=== PATIENT | female | born 1970 | race Caucasian/White ===

== ENCOUNTER 2020-05-26 13:13 | Observation (INO) | payer OTHER ==
[2020-05-26] MEDS ORDERED: Ondansetron ODT 4 MG TAB ONE ×2 (13:56→14:00)
[2020-05-26] MEDS ORDERED: Ketorolac Tromethamine 30 MG/ML VIAL ONE (15:04)
[2020-05-26 15:31] LABS: ALT (SGPT) 82 U/L (8-55); AST (SGOT) 286 U/L (5-34); Alkaline Phosphatase 332 U/L (40-110); Anion Gap 32 mmol/L (10-20); BUN (Urea Nitrogen) 6 mg/dL (7.0-18.7); Bilirubin, Total 0.5 mg/dL (0.2-1.2); Calc. Creatinine Clearance 0 mL/min (70-130); Calcium 8.1 mg/dL (7.8-10.44); Carbon Dioxide 19 mmol/L (22-29); Chloride 87 mmol/L (98-107); Globulin 2.8 g/dL (2.4-3.5); Glucose 98 mg/dL (70-105); Lipase 65 U/L (8-78); Potassium 3.3 mmol/L (3.5-5.1); Protein, Total 5.8 g/dL (6.0-8.3); Sodium 135 mmol/L (136-145)
[2020-05-26 15:35] LABS: Hemoglobin 11.6 g/dL (12.0-16.0); Mean Corpuscular HGB CONC 34.6 g/dL (32.0-36.0); Platelet Count 275 thou/uL (130-400); RBC Distribution Width 17.8 % (11.5-14.5); Red Blood Cell (RBC) Count 3.13 mill/uL (4.20-5.40); White Blood Cell (WBC) Count 7.8 thou/uL (4.8-10.8)
[2020-05-26 15:38] LABS: #Basophils 0.1 thou/uL (0.0-0.2); #Lymphocytes 2.1 thou/uL (1.20-3.40); #Neutrophils 4.7 thou/uL (1.40-6.50); %Basophils 0.7 % (0.0-1.0); %Eosinophils 0.4 % (0.0-10.0); %Lymphocytes 26.8 % (21.0-51.0); %Monocytes 12.3 % (0.0-10.0); %Neutrophils 59.9 % (42.0-75.0)
[2020-05-26 15:39] LABS: Anisocytosis SLIGHT = 6-15 cells (100X) (0-5/hpf); MDiff Complete? YES; Macrocytosis SLIGHT = 6-15 cells (100X) (0-5/hpf); Platelet Morphology Comment Appears Adequate; Target Cells SLIGHT = 2-5 cells (100X) (0-1/hpf)
[2020-05-26 16:08] LABS: Acetaminophen Less than 6.0 mcg/mL (10.0-30.0); Alcohol 81 mg/dL (Less than 10); Salicylate Less than 8.0 mg/dL (15.0-30.0)
--- NOTE | 2020-05-26 16:58 | RAD ---
Exam: Chest one view HISTORY:Altered mental status. Vomiting and diarrhea Comparison: 01/16/2020 FINDINGS: Cardiac silhouette: Normal Aorta: Unremarkable Pulmonary vessels: Normal Costophrenic angles: Clear LUNGS: No masses or consolidation. Pneumothorax: None Osseous abnormalities: None IMPRESSION: No acute cardiopulmonary process.
[2020-05-26] MEDS ORDERED: Multivitamins, Adult 10 ML, Thiamine HCl 100 MG, Folic Acid 1 MG in Dextrose 5 %-0.45 %... IV ONE (17:00)
[2020-05-26 17:13] LABS: Bilirubin Negative (Negative); Blood, Urine Negative (Negative); Clarity Clear (Clear); Glucose, Urine (Dipstick) Normal (Negative); Ketone, Urine 40 mg/dL (Negative); Leukocyte Negative Leu/uL (Negative); Nitrite Negative (Negative); Protein, Urine (Dipstick) 10 mg/dL (Neg-Trace); Specific Gravity, Urine 1.019 (1.002-1.036); Urobilinogen Normal mg/dL (Less than 2)
[2020-05-26] MEDS ORDERED: Piperacillin/Tazobactam 3.375 GM VIAL ONE (17:16)
[2020-05-26 17:23] LABS: Amphetamine Not Detected (NotDetected); Barbiturates Screen Not Detected (NotDetected); Benzodiazepine Screen Not Detected (NotDetected); Cocaine Metabolite Screen Not Detected (NotDetected); Medtox Control Line Valid? VALID (VALID); Medtox Reader # READER 4; Methadone Not Detected (NotDetected); Methamphetamine Not Detected (NotDetected); Opiate Screen Not Detected (NotDetected); Oxycodone Screen Not Detected (NotDetected); Phencyclidine (PCP) Not Detected (NotDetected); THC/Cannabinoid Screen Not Detected (NotDetected); Tricyclic Screen Not Detected (NotDetected)
[2020-05-26] MEDS ORDERED: Potassium Chloride 20 MEQ TAB ONE (17:34)
[2020-05-26 18:16] LABS: Base Excess-Venous 1.5 mmol/L (-2.0 to 3.0); Bicarbonate (HCO3v) 25.2 mmol/L (22.0-28.0); CO2 Tension (PvCO2) 35.8 mmHg (40.0-50.0); Chloride 91 mmol/L (98-107); Hemoglobin - Calc 12.5 g/dL (12.0-16.0); Potassium 3.2 mmol/L (3.5-5.1); Sodium 131 mmol/L (138-145); T. Carbon Dioxide 26.3 mmol/L (22.0-28.0); vO2 Saturation-calc 99.6 % (60.0-85.0)
[2020-05-26] MEDS ORDERED: Senokot S 8.6-50 MG TAB PO PRN (18:46)
[2020-05-26] MEDS ORDERED: Ondansetron PF 4 MG/2 ML Vial IVP PRN (18:46)
[2020-05-26] MEDS ORDERED: Ondansetron ODT 4 MG TAB PO PRN (18:46)
--- NOTE | 2020-05-26 18:46 | PDOC.FPRHP ---
- History of Present Illness Chief Complaint: abdominal complaints History of Present Illness: Pt is a 49 yo F with a PMH of ADHD and alcoholism who presents with 6 month history of multiple abdominal complaints including vomiting, nausea, diarrhea. She also endorses muscle aches, feeling dizzy, and palpitations. She states the symptoms used to be off and on but over the last 2 weeks have gotten more consistent and the last 2 days were gradually worsening, prompting her to come to the ED. She states she cannot keep anything down and vomits about 8 times a day. The vomit is clear. She states she follows up with DIANA Jolley, and had an EGD and colonoscopy about 1 month ago. She was diagnosed with gallstones, but s aleshia she was not able to have them removed 2/2 a gastric ulcer. She endorses a history of alcoholism where she can have anywhere from 2-10+ drinks in a day, with her drink of choice being Vodka. She denies every withdrawing from alcohol and states last drink was yesterday. She states she started drinking heavily after her brother's about 4 months ago and feels like she has been dealing with depression from that event but has not seen a doctor. Denies SI. ED Course: KCl, Zosyn, Banana Bag, NS, Bentyl, Ketorolac, Zofran - Allergies/Adverse Reactions Allergies Allergy/AdvReac Type Severity Reaction Status Date / Time No Known Allergies Allergy Verified 01/16/20 19:09 - Home Medications Medication Instructions Recorded Confirmed Type Pantoprazole [Protonix] 40 mg PO BID #120 tab 01/18/20 Rx Pantoprazole [Protonix] 40 mg PO BID #60 tab 01/18/20 Rx - History PMHx: ADHD PSHx: Denies FHx: Denies Social: alcoholism- for the last 10 years has consumed 2-10+ drinks a day. Vodka is drink of choice. Denies drug use. 3-5 cigarettes a day for 30 years - Review of Systems General: denies: fever/chills ENT: denies: nasal congestion Respiratory: denies: cough, shortness of breath Cardiovascular: reports: palpitation. denies: edema Gastrointestinal: reports: nausea, vomiting, diarrhea, abdominal pain. denies: GI bleeding Genitourinary: denies: dysuria Skin: denies: rashes, lesions, jaundice Musculoskeletal: reports: other (cramping/muscle aches) Neurological: reports: weakness - Vital signs BP: 120/73 HR: 114 RR: 18 Tmax: 98.4 Pox: 98% on RA Wt: 56.7kg - Physical Exam Constitutional: NAD, awake, alert and oriented HEENT: normocephalic and atraumatic, PERRLA, EOMI, conjunctiva clear, no scleral icterus, grossly normal vision Neck: supple Heart: RRR, normal S1/S2, no murmurs/rubs/gallops, pulses present, no edema Lungs: CTAB, no respiratory distress, good air movement Abdomen: bowel sounds present -Abdomen: diffusely tender to palpation with increased tenderness in epigastric and RUQ. positive tam's sign. liver enlarged on exam Musculoskeletal: normal structure, normal tone, ROM grossly normal Neurological: no focal deficit Skin: no rash/lesions, good turgor, no jaundice Heme/Lymphatic: no unusual bruising or bleeding Psychiatric: normal mood and affect, good judgment and insight, intact recent and remote memory FMR H&P: Results - Labs Result Diagrams: 05/26/20 14:57 05/26/20 14:57 Lab results: WBC 7.8 thou/uL (4.8-10.8) 05/26/20 14:57 Hgb 11.6 g/dL (12.0-16.0) L 05/26/20 14:57 Hct 33.4 % (36.0-47.0) L 05/26/20 14:57 MCV 107.0 fL (78.0-98.0) H 05/26/20 14:57 Plt Count 275 thou/uL (130-400) 05/26/20 14:57 Neutrophils % 59.9 % (42.0-75.0) 05/26/20 14:57 VBG pCO2 35.8 mmHg (40.0-50.0) L 05/26/20 18:12 VBG pO2 165.7 mmHg (35.0-45.0) H 05/26/20 18:12 Sodium 135 mmol/L (136-145) L 05/26/20 14:57 Potassium 3.3 mmol/L (3.5-5.1) L 05/26/20 14:57 Chloride 87 mmol/L (98-107) L 05/26/20 14:57 Carbon Dioxide 19 mmol/L (22-29) L 05/26/20 14:57 BUN 6 mg/dL (7.0-18.7) L 05/26/20 14:57 Creatinine 0.61 mg/dL (0.6-1.1) 05/26/20 14:57 Glucose 98 mg/dL (70-105) 05/26/20 14:57 Lactic Acid 6.5 mmol/L (0.5-2.2) H* 05/26/20 16:44 Calcium 8.1 mg/dL (7.8-10.44) 05/26/20 14:57 Total Bilirubin 0.5 mg/dL (0.2-1.2) 05/26/20 14:57 AST 286 U/L (5-34) H 05/26/20 14:57 ALT 82 U/L (8-55) H 05/26/20 14:57 Alkaline Phosphatase 332 U/L (40-110) H 05/26/20 14:57 Creatine Kinase 40 U/L (29-168) 05/26/20 16:43 Serum Total Protein 5.8 g/dL (6.0-8.3) L 05/26/20 14:57 Albumin 3.0 g/dL (3.5-5.0) L 05/26/20 14:57 Lipase 65 U/L (8-78) 05/26/20 14:57 Urine Ketones 40 mg/dL (Negative) A 05/26/20 16:59 Urine Blood Negative (Negative) 05/26/20 16:59 Urine Nitrite Negative (Negative) 05/26/20 16:59 Ur Leukocyte Esterase Negative Anjelica/uL (Negative) 05/26/20 16:59 FMR H&P: A/P - Plan #abdominal pain likely 2/2 alcoholic hepatitis vs gallsones vs gastritis -AST/ALT elevated 286/82 suggestive of alcoholic hepatitis -history of gallstones -follows with GI, Dr. Agarwal, outpatient. Consider GI consult in AM -banana bag ordered in ED, follow up on labs -telephone order clerk room service consulted -Protonix 40mg BID, daily multivitamin -encourage alcohol cessation, ASE protocol initiated -RUQ sono pending #hypokalemia -aware, replace as indicated -follow up on Mag level #megaloblastic anemia -MCV 107, Hgb of 11.6 on admission -likely 2/2 to alcoholism -follow up labs, replace vitamins as indicated, banana bag ordered in ED #dehydration -ketones in UA -decreased PO intake -MIVF, tachycardia likely 2/2 dehydration -continue to monitor #anion Gap lactic acidosis with respiratory compensation -AGAP of 29 -lactic acid elevated at 6.5 on admission, will trend -MIVF #depression -needs formal evaluation -consider starting patient on a SSRI during stay #muscle aches/cramps -likely 2/2 nutritional deficiencies and dehydration -will continue to monitor Dispo: admit to tele, obs. Anticipated LOS < 48 hours Diet: full liquid IVF: MIVF LR @ 100mL/hr Code: FULL DVT ppx: Lovenox PCP: none, encourage patient to get established on discharge FMR H&P: Upper Level - Plan Date/Time: 05/26/201844 IMagdy, have evaluated this patient and agree with findings/plan as outlined by software engineer intern resident. Pertinent changes/additions are listed here. This is 49 yo female with a pmh of alcohol abuse, alcoholic gastritis, alcoholic hepatitis, cholelithiasis who presents to the ER following 2 days of nausea, vomiting, and diarrhea. She states that she has been having some nausea for the last week that recently worsened. She reports 4 episodes of non-bloody diarrhea per day, vomiting with any PO intake, and last alcoholic drink was yesterday. In regards to her alcohol use, she states this started 4 years ago when her 34 yo brother . She states she drinks 2-10 drinks per day and states she can quit any time. She denies any history of DTs or withdraw symptoms. She states that she has been feeling more depressed lately with COVID and life in general. She denies SI/HI but states sometimes she wishes she just fell asleep but didn't wake up. She denies any plan at this time. Today she is complaining of muscle cramps. She states they started a few weeks ago. She states the cramping and pain is in all her muscles, but worse on the lower left leg. Of note, 4 months ago, she was seen by Dr. Agarwal for alcoholic gastritis as well as an RUQ US that showed gall stones but no acute inflammation. She states that she was going to have surgery to remove the gall stones but had an ulcer that prevented this. I can not find any documentation supporting this claim. Objective: Vitals: BP109/76, HR 114, RR 18, Temp 98.4, SpO2 100% on RA, wt 56kg General: NAD HEENT: MMM, AT/NC, PERRLA Cardio: RRR, no murmurs Lungs: CTAB Abdomen: Pain with palpation of RUQ and epigastric region, no peritoneal signs, no fluid wave Extremities: Trace edema in bilateral ankles, Pulses 2+ globally Skin: No jaundice appreciated, no signs of cirrosis A/P Alcoholic gastritis -Admit to tele for monitoring until electrolytes are improved then consider move to medical -Protonix BID -IV fluid resuscitation for dehydration Anion gap metabolic acidosis 2/2 dehydration, vomiting, and current alcohol level -Will follow with BMP -IV fluid resuscitation will likely resolve issue Alcoholic hepatitis -Elevated AST/ALT -Encouraged alcohol cessation -Pending Viral hepatitis panel Alcohol abuse -ASE protocol -S/P Banana bag, will continue folate and thiamine supplementation Cholelithiasis -RUQ US to assess for cholecystitis 2/2 cholelithiasis Ketosis likely 2/2 vomiting, diarrhea, and alcohol use -Fluid recuscitation Lactic acidosis -2/2 above, treating as above Hypokalemia -Replaced in the ER, will trend with BMP, pending Mag and phos levels Depression -Consider antidepressant such as Cymbalta if pain in legs continues Macrocytic anemia -likely 2/2 alcoholism/poor nutrition, supplementing with folate and thiamine Muscle spasms -Hopefully will improve with electrolyte correction -Consider heating pad for pain relief Code: Full Prophylaxis: Lovenox/Protonix Family: at bedside Fluids: LR 100ml/hr Diet: NPO at midnight Disposition: DC in 2-3 days PCP: Not established with anyone at this time, needs list at DC Addendum - Attending - Attending Attestation Date/Time: 05/26/20 7572 I personally evaluated the patient and discussed the management with Dr. Hernadez and Jus. I agree with the History, Examination, Assessment and Plan documented above with any addition or exceptions noted below.
[2020-05-26] MEDS ORDERED: Sodium Chloride 0.9% (PF) 10 ML VIAL FS PRN (19:00)
[2020-05-26] MEDS ORDERED: Enoxaparin Sodium 40 MG/0.4 ML SYRINGE SC SCH (20:00)
[2020-05-26] MEDS: Pantoprazole 40 MG VIAL IVP SCH (20:16)
[2020-05-26] MEDS: Acetaminophen 325 MG TAB PO PRN (20:16)
[2020-05-26 20:19] LABS: Magnesium 1.4 mg/dL (1.6-2.6); Phosphorus 3.7 mg/dL (2.3-4.7)
[2020-05-26 20:25] LABS: Lactic Acid 4.1 mmol/L (0.5-2.2)
[2020-05-26 20:37] LABS: HBCM Index 0.06 S/CO (0-0.79); HBSAg Index 0.16 S/CO (0-0.99); HIV (1/2) Antibody/Antigen Non-Reactive (NonReactive); HIV 1/2 INDEX 0.08 S/CO (<1.00); Hep A IgM AB Non-Reactive (NonReactive); Hep B Surf Ag Non-Reactive S/CO (NonReactive); Hep C IgG Ab Non-Reactive (NonReactive); Hep C Index 0.11 S/CO (0-0.79); Hepatitis B Core IgM Abs Non-Reactive (NonReactive)
[2020-05-26] MEDS ORDERED: Thiamine HCl 200 MG/2 ML VIAL SLOW IVP SCH (21:00)
[2020-05-26] MEDS ORDERED: Magnesium 2 GM/50 ML 2 GM in Premix Bag 1 BAG IVPB SCH (21:00)
[2020-05-26] MEDS: Lactated Ringer's 1,000 ML IV SCH (21:48)
[2020-05-27 05:28] LABS: ALT (SGPT) 65 U/L (8-55); AST (SGOT) 222 U/L (5-34); Albumin 2.3 g/dL (3.5-5.0); Alkaline Phosphatase 263 U/L (40-110); Anion Gap 16 mmol/L (10-20); BUN (Urea Nitrogen) 4 mg/dL (7.0-18.7); Bilirubin, Total 0.6 mg/dL (0.2-1.2); CK (CPK) 44 U/L (29-168); Calc. Creatinine Clearance 101 mL/min (70-130); Carbon Dioxide 24 mmol/L (22-29); Chloride 99 mmol/L (98-107); Globulin 2.1 g/dL (2.4-3.5); Glucose 107 mg/dL (70-105); Protein, Total 4.4 g/dL (6.0-8.3); Sodium 136 mmol/L (136-145)
[2020-05-27 05:29] LABS: #Eosinphils 0.1 thou/uL (0.0-0.7); #Lymphocytes 2.2 thou/uL (1.20-3.40); #Monocytes 0.7 thou/uL (0.11-0.59); %Basophils 0.5 % (0.0-1.0); %Eosinophils 1.1 % (0.0-10.0); %Lymphocytes 36.5 % (21.0-51.0); Hemoglobin 9.1 g/dL (12.0-16.0); Mean Corpuscular HGB CONC 34.9 g/dL (32.0-36.0); Mean Corpuscular Hemoglobin 37.6 pg (27.0-31.0); Mean Platelet Volume 7.2 fL (7.4-10.4); Platelet Count 237 thou/uL (130-400); Red Blood Cell (RBC) Count 2.43 mill/uL (4.20-5.40); White Blood Cell (WBC) Count 6.1 thou/uL (4.8-10.8)
[2020-05-27 05:35] LABS: Potassium 2.8 mmol/L (3.5-5.1)
--- NOTE | 2020-05-27 05:43 | PDOC.FM ---
- Subjective Subjective: Pt resting comfortably in bed this AM. No acute events overnight. - Objective Vital Signs & Weight: Vital Signs (12 hours) Temp Pulse Resp BP BP Pulse Ox 05/27/20 04:32 98.4 F 93 18 121/75 95 05/26/20 23:32 98.9 F 110 H 21 H 119/62 98 05/26/20 18:46 98.9 F 110 H 21 H 119/62 98 Weight Weight 58.173 kg I&O: 05/25/20 05/26/20 05/27/20 06:59 06:59 06:59 Intake Total 2325 Balance 2325 Result Diagrams: 05/27/20 04:28 05/27/20 04:28 Phys Exam - Physical Examination Constitutional: NAD HEENT: moist MMs Neck: supple Respiratory: no wheezing, no rales, no rhonchi, clear to auscultation bilateral Cardiovascular: RRR, no significant murmur, no rub Gastrointestinal: soft, non-tender, no distention, positive bowel sounds Dx/Plan - Plan Plan: ##Abdominal pain likely 2/2 alcoholic hepatitis vs gallsones vs gastritis -AST/ALT elevated 286/82 suggestive of alcoholic hepatitis -Protonix 40mg BID, daily multivitamin -encourage alcohol cessation, ASE protocol initiated -RUQ sono pending #Hypokalemia -aware, replacing as indicated -follow up on Mag level #Megaloblastic anemia -MCV 107, Hgb of 11.6 on admission -likely 2/2 to alcoholism -follow up labs, replace vitamins as indicated #Dehydration -ketones in UA -decreased PO intake -MIVF, tachycardia likely 2/2 dehydration -continue to monitor #Depression -needs formal evaluation and outpatient follow up #Muscle aches/cramps -likely 2/2 nutritional deficiencies and dehydration -will continue to monitor -see above electrolyte disturbances Code: FULL DVT ppx: Lovenox PCP: none, encourage patient to get established on discharge Dispo as of 05/27: Replacing electrolytes. Advancing diet as tolerated.
[2020-05-27] MEDS: Potassium Chloride 20 MEQ in Premix Bag 1 BAG IVPB SCH ×2 (06:04→08:25)
[2020-05-27 06:05] LABS: SARS-CoV-2 MS2 Positive; SARS-CoV-2 N Gene Negative; SARS-CoV-2 S Gene Negative; SARS-CoV-2 by NAA Not Detected (NotDetected); SARS-CoV-2 orf1ab Negative
[2020-05-27] MEDS: Lactated Ringer's 1,000 ML IV SCH ×2 (06:21→15:53)
[2020-05-27] MEDS: Acetaminophen 325 MG TAB PO PRN (06:28)
--- NOTE | 2020-05-27 07:46 | ULT ---
RIGHT UPPER QUADRANT ULTRASOUND CLINICAL HISTORY: History of alcoholism, right upper quadrant abdominal pain with nausea vomiting and diarrhea. COMPARISON: Prior Right upper quadrant ultrasound dated January 16, [address] the abdomen and pelv is dated January 16, 2020 FINDINGS: Liver:There is coarse echotexture to the liver consistent with chronic liver disease. No focal hepati c lesion is evident. Appropriate hepatopedal flow is seen within the main portal vein. Intrahepatic bile ducts: No overt dilatation Common bile duct: 0.7 mm. Gallbladder: There are layered gallstones within the gallbladder. No gallbladder wall thickening is e vident. Del Toro's sign:Positive Main portal vein:Patent with hepatopedal flow. Pancreas:Visualized pancreas appears normal. Right kidney: Right kidney measures 9.4 x 3.4 x 5.1 cm. No focal renal lesion or hydronephrosis. Additional findings: None. IMPRESSION: 1. Cholelithiasis with report of a sonographic Del Toro's sign. Findings are equivocal by ultrasound fo r acute cholecystitis. Clinically indicated further evaluation with a HIDA scan may be helpful. 2. Coarse heterogeneous echo appearance of the liver, likely reflective of underlying chronic liver d isease.
[2020-05-27] MEDS: Pantoprazole 40 MG VIAL IVP SCH (08:27)
[2020-05-27] MEDS ORDERED: Multivitamins CHEW w/Iron Tablet PO SCH (09:00)
[2020-05-27] MEDS ORDERED: Enoxaparin Sodium 40 MG/0.4 ML SYRINGE SC SCH ×2 (09:00→21:00)
[2020-05-27 10:34] VITALS: BMI 24.2
[2020-05-27] MEDS ORDERED: Potassium Chloride 20 MEQ TAB PO SCH (12:00)
[2020-05-27] MEDS ORDERED: Ketorolac Tromethamine 30 MG/ML VIAL IVP SCH (15:30)
[2020-05-27 16:42] LABS: Anion Gap 18 mmol/L (10-20); BUN (Urea Nitrogen) Less than 4 mg/dL (7.0-18.7); Calc. Creatinine Clearance 108 mL/min (70-130); Calcium 7.7 mg/dL (7.8-10.44); Carbon Dioxide 25 mmol/L (22-29); Chloride 98 mmol/L (98-107); Glucose 130 mg/dL (70-105); Potassium 3.7 mmol/L (3.5-5.1); Sodium 137 mmol/L (136-145)
[2020-05-27 17:38] VITALS: BP 135/88; TEMP 98.7
--- NOTE | 2020-05-29 18:39 | DIS ---
DATE OF ADMISSION: 05/26/2020 DATE OF DISCHARGE: 05/27/2020 RESIDENT: Margarita Trivedi DO ADMITTING ATTENDING: Elan Yepez MD DISCHARGE ATTENDING: Giovanni James MD CONSULTS: None. PROCEDURES: Chest x-ray done on 05/26/2020 showed no acute cardiopulmonary process. PRIMARY DIAGNOSIS: Abdominal pain secondary to gastritis SECONDARY DIAGNOSES: Depression, alcohol abuse, history of gastric ulcer, untreated ADHD DISCHARGE MEDICATIONS: Protonix 40 mg p.o. b.i.d. DISCONTINUED MEDICATIONS: None. HISTORY OF PRESENT ILLNESS/HOSPITAL COURSE: This is a 49-year-old female with a past medical history of untreated ADHD and alcoholism, who presented for 6-month history of multiple abdominal complaints including vomiting, nausea, and diarrhea. She endorsed muscle aches, feeling dizzy, and palpitations. She states symptoms have been on and off, but over the last 2 weeks, had gotten more constant. The last two days were gradually worsening, prompting her to come to the ED. She states that she has not been able to keep any food down and vomits about 8 times a day. This has been nonbloody in nature. She states that that last time she was hospitalized in January she had EGD and Colonoscopy with Dr. Agarwal in GI that showed gastritis and a gastric ulcer. She was diagnosed with gallstones at that time and she was not able to have that removed secondary to her gastric ulcer. She endorsed a history of alcoholism and she drinks anywhere from from 2 to 10 drinks a day. She denies ever having withdrawal from alcohol and states that her last drink was the day before admission. Due to the patient's GI complaints and history of alcoholism, abdominal ultrasound was done, which showed cholelithiasis with sonographic Del Toro sign and evaluation with HIDA scan was suggested with coarse heterogeneous echo appearance of liver likely reflective of underlying chronic liver disease. Due to the patient having EGD and colonoscopy recently it was not necessary to perform these again during this hospitalization. HIDA could be down outpatient. No evidence of acute cholecystitis was found. The patient was advised to stop drinking, which the patient was very agreeable to. It was advised that the patient follow up with general surgeon, Dr. Sotelo, who saw her during her hospitalization for this very same issue in March. DISPOSITION: Stable. DISCHARGE INSTRUCTIONS: 1. Location: Home. 2. Diet: Regular. 3. Activity as tolerated. 4. Follow up within 7 to 10 days with primary care physician. Job ID: [id number] [id number]
== END 2020-05-27 20:06 | disposition home or self-care (01) ==
LOC: ERS 13:13 → 2NO 17:34
PROVIDERS: ADMIT Emergency Medicine; ATTEND Emergency Medicine
DX: K29.20 Alcoholic gastritis without bleeding (principal); K70.10 Alcoholic hepatitis without ascites; F10.10 Alcohol abuse, uncomplicated; F32.9 Major depressive disorder, single episode, unspecified; F90.9 Attention-deficit hyperactivity disorder, unspecified type; E87.2 Acidosis; E86.0 Dehydration; F17.210 Nicotine dependence, cigarettes, uncomplicated; E87.6 Hypokalemia; E88.89 Other specified metabolic disorders; D53.1 Other megaloblastic anemias, not elsewhere classified; K80.20 Calculus of gallbladder without cholecystitis without obstruction; M62.838 Other muscle spasm; Z87.19 Personal history of other diseases of the digestive system; Z20.828 Contact with and (suspected) exposure to other viral communicable diseases
CPT/HCPCS: 36415; 71045; 76705; 78227; 80053; 80074; 80306; 80307; 81003; 82330; 82550; 82607; 82746; 82803; 83605; 83690; 83735; 84100; 84425; 84484; 85025; 87040; 87086; 87389; 87635; 93005; 96365; 96372; 96375; 96376; C9113; G0378; J0500; J1650; J1885; J2543; J3411; J3475; J3480; J7042; Q0162; U0003

== ENCOUNTER 2021-09-28 13:32 | Outpatient (CLI) | payer OTHER | END 2021-09-28 13:33 | disposition home or self-care (01) | LOC: BICULT 13:32 | PROVIDERS: ATTEND Student in an Organized Health Care Education/Training Program | DX: N92.6 Irregular menstruation, unspecified (principal) | CPT/HCPCS: 76856 ==